=== PATIENT | male | born 1940 | race American Indian/Alaskan Native ===

== ENCOUNTER 2020-10-03 10:03 | Outpatient (CLI) | payer MEDICARE ==
--- NOTE | 2020-10-03 11:28 | Cat Scan Report ---
CT ABDOMEN WITHOUT CONTRAST INDICATION / CLINICAL INFORMATION: ENLARGED PROSTATE WITH LOWER URINARY SYMPTOM. TECHNIQUE: Axial CT images were obtained through the abdomen without IV contrast. All CT scans at this location are performed using CT dose reduction for ALARA by means of automated exposure control. COMPARISON: None available. FINDINGS: LOWER CHEST: Moderate aortic valve calcification. HEPATOBILIARY: No significant abnormality. PANCREAS/SPLEEN/ADRENALS: No significant abnormality. URINARY: Multiple renal hypodensities, predominantly at the left kidney. Largest measures 5.6 cm, and these are suggestive of simple cysts. 2 mm left renal calcification could represent a nonobstructing nephrolith. Visualized ureters demonstrate no significant abnormality. GASTROINTESTINAL/MESENTERY: No significant abnormality. RETROPERITONEUM: No significant adenopathy. VASCULAR: No significant abnormality. BODY WALL: Postoperative change of anterior wall hernia repair. SKELETAL SYSTEM: No significant abnormality. IMPRESSION: 1. No acute abdominal abnormality. 2. Multiple simple appearing renal cysts, predominantly on the left. Tiny left calcification possibly representing a nonobstructing nephrolith. 3. Postoperative change of anterior wall hernia repair without significant abnormality. 4. Pelvic structures were not imaged on today's examination. Signer Name: Jono Romero MD Signed: 10/03/2020 11:23 AM Workstation Name: [id number]
== END 2020-10-03 10:04 | disposition home or self-care (01) ==
LOC: CT 10:03
PROVIDERS: ATTEND Urology
DX: N28.1 Cyst of kidney, acquired (principal); N40.1 Benign prostatic hyperplasia with lower urinary tract symptoms; I70.0 Atherosclerosis of aorta
CPT/HCPCS: 74150